=== PATIENT | female | born 1960 | race African-American/Black ===

== ENCOUNTER 2017-12-26 13:29 | Inpatient (IN) ==
[2017-12-26] MEDS ORDERED: SODIUM CHLORIDE 0.9% 500 ML IV STA (13:45)
[2017-12-26] MEDS ORDERED: ONDANSETRON ODT 4 MG TABLET PO STA (13:45)
[2017-12-26] MEDS ORDERED: ONDANSETRON ODT 4 MG TABLET PO ONE (14:46)
[2017-12-26 15:00] LABS: Basophils % 0.1 % (0.0-0.8); Eosinophils # 0.1 10*3/uL (0.0-0.87); Hematocrit 31.1 VOL% (35.7-47.0); Hemoglobin 10.1 GM/DL (12.0-16.0); Immature Granulocytes % 0.5 %; Immature Granulocytes Absolute 0.05 #; Lymphocytes # 1.3 10*3/uL (1.4-4.0); Lymphocytes % 13.9 % (21.3-54.2); Mean Corpuscular HGB Conc 32.5 GM/DL (32-36); Mean Corpuscular Hemoglobin 29 PG (27-34); Mean Corpuscular Volume 87.6 FL (87-102); Mean Platelet Volume 10.7 FL (9.6-12.0); Monocytes # 0.7 10*3/uL (0.11-0.8); Monocytes % 7.6 % (1.7-12.7); Neutrophils # 7.4 10*3/uL (1.4-7.4); Neutrophils % 76.9 % (38.7-73.9); Platelet Count 235 T/CUMM (130-400); Red Blood Count 3.55 MC/CUMM (3.8-5.5); Red Cell Distribution Width 12.7 % (9.3-17.3); White Blood Count 9.6 T/CUMM (4-12)
[2017-12-26 15:37] LABS: Bilirubin,Total 0.7 MG/DL (0.2-1.0); Calcium 8.9 MG/DL (8.5-10.1); Osmolality,Calculated 278.3 MOS/KG (273-304); Potassium 3.5 MMOL/L (3.5-5.1); Total Protein 5.9 G/DL (6.4-8.3)
[2017-12-26] MEDS ORDERED: ACETAMINOPHEN 325 MG TABLET PO PRN (16:09)
[2017-12-26] MEDS ORDERED: ONDANSETRON 4 MG/2 ML VIAL IV PRN (16:09)
[2017-12-26] MEDS ORDERED: MORPHINE 2 MG/1 ML SYRINGE IV PRN (16:09)
[2017-12-26] MEDS ORDERED: ceFAZolin 1,000 MG in SYRINGE 1 EACH IV ONE (16:14)
[2017-12-26 16:29] LABS: Apearance,Urine Slightly Hazy (Clear); Bacteria,Urine Occasional /HPF (Few); Bilirubin,Urine Negative (Negative); Blood, Urine Negative (Negative); Glucose,Urine (UA) Negative (Negative); Ketones,Urine Negative (Negative); Mucus,Urine Occasional /LPF (Occasional); Nitrite,Urine Negative (Negative); Protein,Urine Negative; RBC,Urine 1 /HPF (0-4); Squamous Epithelial Cell,Urine Occasional /HPF (0-10); Urine Color Yellow (Yellow); Urine Specific Gravity 1.021 (1.001-1.035); WBC,Urine 6 /HPF (0-6)
[2017-12-26] MEDS ORDERED: ceFAZolin 1,000 MG VIAL ONE (17:22)
[2017-12-26] MEDS ORDERED: PROPOFOL 200 MG/20 ML VIAL IV ONE (17:54)
[2017-12-26] MEDS ORDERED: fentaNYL 100 MCG/2 ML VIAL ONE (17:55)
[2017-12-26] MEDS ORDERED: KETOROLAC 30 MG/1 ML VIAL ONE (17:55)
[2017-12-26] MEDS ORDERED: DEXAMETHASONE 10 MG/1 ML VIAL ONE (17:55)
[2017-12-26] MEDS ORDERED: ONDANSETRON 4 MG/2 ML VIAL ONE (17:55)
[2017-12-26] MEDS ORDERED: MIDAZOLAM 2 MG/2 ML VIAL ONE (17:55)
[2017-12-26] MEDS ORDERED: ePHEDrine 50 MG/ML AMP ONE (17:55)
[2017-12-26] MEDS ORDERED: LACTATED RINGERS 1,000 ML IV ONE (17:56)
[2017-12-26] MEDS ORDERED: ACETAMINOPHEN 1,000 MG/100 ML VIAL IV ONE (17:56)
[2017-12-26] MEDS: LACTATED RINGERS 1,000 ML IV SCH (18:38)
[2017-12-26] MEDS: ALBUTEROL/IPRATROPIUM 3 ML NEB RESP TX SCH (20:03)
[2017-12-26] MEDS: CARVEDILOL 12.5 MG TABLET PO SCH (20:27)
[2017-12-27] MEDS: LACTATED RINGERS 1,000 ML IV SCH ×2 (00:38→08:12)
[2017-12-27 04:20] LABS: Basophils % 0.1 % (0.0-0.8); Hematocrit 26.8 VOL% (35.7-47.0); Hemoglobin 8.4 GM/DL (12.0-16.0); Immature Granulocytes % 0.9 %; Immature Granulocytes Absolute 0.06 #; Lymphocytes # 0.6 10*3/uL (1.4-4.0); Lymphocytes % 8.5 % (21.3-54.2); Mean Corpuscular HGB Conc 31.3 GM/DL (32-36); Mean Corpuscular Hemoglobin 28 PG (27-34); Mean Platelet Volume 11.2 FL (9.6-12.0); Monocytes # 0.2 10*3/uL (0.11-0.8); Monocytes % 2.1 % (1.7-12.7); Neutrophils # 6.2 10*3/uL (1.4-7.4); Neutrophils % 88.4 % (38.7-73.9); Platelet Count 229 T/CUMM (130-400); Red Blood Count 3.01 MC/CUMM (3.8-5.5); Red Cell Distribution Width 12.6 % (9.3-17.3)
[2017-12-27 04:52] LABS: Calcium 8.8 MG/DL (8.5-10.1); Osmolality,Calculated 283.1 MOS/KG (273-304); Potassium 4.3 MMOL/L (3.5-5.1)
[2017-12-27] MEDS: ALBUTEROL/IPRATROPIUM 3 ML NEB RESP TX SCH ×4 (08:07→19:45)
[2017-12-27] MEDS: amLODIPine 10 MG TABLET PO SCH (10:01)
[2017-12-27] MEDS: VORTIOXETINE 5 MG PO SCH (10:02)
[2017-12-27] MEDS: CARVEDILOL 12.5 MG TABLET PO SCH ×2 (10:02→16:54)
[2017-12-27] MEDS: PANTOPRAZOLE 40 MG TABLET PO SCH (10:02)
[2017-12-27] MEDS ORDERED: MAGNESIUM HYDROXIDE SUSP 30 ML UDCUP PO PRN (12:07)
[2017-12-27] MEDS ORDERED: BISACODYL 10 MG SUPP RECTAL PRN (12:10)
[2017-12-27] MEDS ORDERED: POLYETHYLENE GLYCOL POWDER 17 GM PACK PO PRN (12:11)
[2017-12-27] MEDS: DOCUSATE SODIUM 100 MG CAPSULE PO SCH ×2 (16:53→20:38)
[2017-12-27] MEDS: guaiFENesin/DM ER 600-30 MG TABLET PO SCH ×2 (16:53→20:38)
[2017-12-28 05:27] LABS: Hematocrit 22.4 VOL% (35.7-47.0)
[2017-12-28] MEDS: ALBUTEROL/IPRATROPIUM 3 ML NEB RESP TX SCH ×4 (07:26→19:43)
[2017-12-28] MEDS: VORTIOXETINE 5 MG PO SCH (10:16)
[2017-12-28] MEDS: amLODIPine 10 MG TABLET PO SCH (10:17)
[2017-12-28] MEDS: guaiFENesin/DM ER 600-30 MG TABLET PO SCH ×2 (10:17→22:12)
[2017-12-28] MEDS: DOCUSATE SODIUM 100 MG CAPSULE PO SCH ×2 (10:18→22:12)
[2017-12-28] MEDS: CARVEDILOL 12.5 MG TABLET PO SCH ×2 (10:18→16:56)
[2017-12-28] MEDS: PANTOPRAZOLE 40 MG TABLET PO SCH (10:18)
[2017-12-28 12:39] LABS: Hemoglobin 7.4 GM/DL (12.0-16.0)
[2017-12-28] MEDS: CIPROFLOXACIN 500 MG TABLET PO SCH (16:54)
[2017-12-28 19:35] LABS: Apearance,Urine CLEAR (Clear); Bacteria,Urine Many /HPF (Few); Bilirubin,Urine Negative (Negative); Blood, Urine Negative (Negative); Glucose,Urine (UA) Negative (Negative); Ketones,Urine Negative (Negative); Nitrite,Urine Negative (Negative); Protein,Urine Negative; RBC,Urine <1 /HPF (0-4); Squamous Epithelial Cell,Urine Occasional /HPF (0-10); Urine Specific Gravity 1.005 (1.001-1.035); WBC,Urine 1 /HPF (0-6)
[2017-12-28 19:42] LABS: Urine Color Yellow (Yellow)
[2017-12-29] MEDS: CIPROFLOXACIN 500 MG TABLET PO SCH (05:13)
[2017-12-29 05:50] LABS: Hematocrit 23.3 VOL% (35.7-47.0); Hemoglobin 7.2 GM/DL (12.0-16.0)
[2017-12-29] MEDS: ALBUTEROL/IPRATROPIUM 3 ML NEB RESP TX SCH ×3 (07:48→14:22)
[2017-12-29] MEDS: amLODIPine 10 MG TABLET PO SCH (09:32)
[2017-12-29] MEDS: DOCUSATE SODIUM 100 MG CAPSULE PO SCH (09:32)
[2017-12-29] MEDS: CARVEDILOL 12.5 MG TABLET PO SCH (09:32)
[2017-12-29] MEDS: VORTIOXETINE 5 MG PO SCH (09:32)
[2017-12-29] MEDS: guaiFENesin/DM ER 600-30 MG TABLET PO SCH (09:32)
[2017-12-29] MEDS: PANTOPRAZOLE 40 MG TABLET PO SCH (09:32)
[2017-12-29 11:54] VITALS: BP 120/60
== END 2017-12-29 17:00 | disposition home or self-care (01) | DRG 920 ==
LOC: EDUNIT# → EDSEX → EDBD → N.EDINP 13:29 → N.ED 13:29 → N.EDINP 17:04 → N.3E 18:27
PROVIDERS: ADMIT Surgery; ATTEND Surgery